=== PATIENT | male | born 1975 | race Caucasian/White ===

== ENCOUNTER 2017-06-18 18:25 | Inpatient (IN) | payer OTHER ==
[~2017-06-18] VITALS: Ht 180.3 cm; Wt 79.4 kg
--- NOTE | 2017-06-18 22:15 | NUR ---
Pre-Admission Pre-admission assessment performed in the intake department of [facility]. Pt is A&O and ambulatory with a steady gait. He appears fidgety but is cooperative and answers questions appropriately. Vital signs are B/P 124/71, HR 87, O2 sat 98%, RR 16, T 97.8, pain 0/10. Pt reports NKA and he denies seizure history. He states that he has been using methamphetamine IV and only occasionally drinks ETOH. Unit rules explained and pt verbalized understanding. Pt is stable and admission is to continue on the [facility].
[2017-06-18 22:20] VITALS: BP 124/71
[2017-06-18] MEDS ORDERED: ESCI20TA37 PO (23:05)
[2017-06-18] MEDS ORDERED: PRAZ1CAP5 PO (23:05)
[2017-06-18] MEDS ORDERED: ELVI1TAB3 PO (23:05)
[2017-06-18] MEDS ORDERED: HYDR-3028 PO (23:05)
[2017-06-18] MEDS ORDERED: IBUP100O18 PO (23:05)
[2017-06-18] MEDS ORDERED: MELA3TAB PO (23:05)
[2017-06-19] MEDS ORDERED: METHOCARBAMOL 750 MG TABLET PO PRN
[2017-06-19] MEDS ORDERED: CLONIDINE HCL 0.1 MG TABLET PO PRN
[2017-06-19] MEDS ORDERED: HYDROXYZINE PAMOATE 25 MG CAPSULE PO PRN
[2017-06-19] MEDS ORDERED: diphenhydrAMINE 50 MG CAPSULE PO PRN
[2017-06-19] MEDS ORDERED: IBUPROFEN 400 MG TABLET PO PRN
[2017-06-19] MEDS ORDERED: ACETAMINOPHEN 325 MG TABLET PO PRN
[2017-06-19] MEDS ORDERED: DICYCLOMINE HCL 20 MG TABLET PO PRN
[2017-06-19] MEDS ORDERED: ONDANSETRON 4 MG/2 ML VIAL IM PRN
[2017-06-19] MEDS ORDERED: ONDANSETRON ODT 4 MG TAB.RAPDIS SL PRN
[2017-06-19] MEDS ORDERED: MAGNESIUM HYDROXIDE 30 ML LIQUID UDC PO PRN
[2017-06-19] MEDS ORDERED: LORAZEPAM 1 MG TABLET PO PRN
[2017-06-19] MEDS ORDERED: MAG HYDROX/AL HYDROX/SIMETH 30 ML LIQUID UDC PO PRN
[2017-06-19] MEDS ORDERED: LOPERAMIDE HCL 2 MG CAPSULE PO PRN ×2
[2017-06-19] MEDS ORDERED: MIRALAX 17 GM POWD.PACK PO PRN
[2017-06-19] MEDS ORDERED: LORAZEPAM 1 MG TABLET PO ONE
[2017-06-19 00:15] VITALS: BP 116/82
--- NOTE | 2017-06-19 00:15 | NUR ---
ADMISSION Pt is a 41 yo male [facility] for medically supervised treatment for substance abuse. He is A&O and ambulatory with a steady gait. Body check performed by ENGINEER EXHAUSTER and skin check performed by the nurse. Pt was oriented to the unit and shown to his room. Admission vital signs are B/P 124/71, HR 87, O2 sat 98%, RR 16, T 97.8, pain 0/10. Pt is 5'11" and weighs 175lb. He reports NKA, wishes to be full code status, and is on a regular diet at home. He reports PMH of HIV, bilateral mild hearing loss since , anxiety, and depression. Pt wears corrective lenses. 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 He has bilateral AC track rosen from IV drug use. Last BM was today. Pt denies SI/HI. History of Use Methamphetamine IV 0.25 grams per day for the past 1 month. Last used 0.25 grams 06/16/17 at 1230. He has used meth off and on for four years. Treatment History [facility] for 30 days in 2014. Pt reports having 3 ounces of vodka once or twice per week. He does not smoke cigarettes. Pt decided to come to treatment today because, "I called out of work for month and didn't think about the consequences." Symptoms when he doesn't use include "anxiety, depression, not sleeping". He currently does not have much of a support system where he is living but does have a sponsor. 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 His longest period of sobriety was 60 days in 05/2016. 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 Dr. Fountain aware of pt's admission with orders received. Pt educated regarding use of the call light and all questions answered. Fall precautions in place. Bed is down with call light in reach.
[2017-06-19 01:24] LABS: *AMPHETAMINE, URINE POSITIVE (NEGATIVE); *BARBITURATE, URINE NEGATIVE (NEGATIVE); *CANNABINOID, URINE NEGATIVE (NEGATIVE); *COCCAINE, URINE NEGATIVE (NEGATIVE); *OPIATE, URINE NEGATIVE (NEGATIVE); *PHENCYCLIDINE SCREEN,URINE NEGATIVE (NEGATIVE)
[2017-06-19] MEDS ORDERED: AMOX-421 PO (01:24)
[2017-06-19 01:39] LABS: ETHANOL < 3 MG/DL (0-0)
[2017-06-19] MEDS: PATIENT MAY USE OWN MED- MD OK PO SCH ×2 (01:39→21:00)
--- NOTE | 2017-06-19 01:40 | NUR ---
One time Ativan On admission pt was anxious, nervous, fidgety, and unable to keep his legs from moving. One time Ativan administered per orders.
[2017-06-19 01:42] LABS: BASOPHILS # (AUTO) 0.1 K/uL (0.0-8.0); BASOPHILS % (AUTO) 1.8 % (0.0-2.0); EOSINOPHILS # (AUTO) 0.1 K/uL (0.0-0.7); EOSINOPHILS % (AUTO) 3.2 % (0.0-7.0); HEMATOCRIT 40.1 % (36.7-47.1); HEMOGLOBIN 13.8 g/dL (12.5-16.3); LYMPHOCYTES # (AUTO) 1.7 K/uL (20.0-40.0); LYMPHOCYTES % (AUTO) 37.8 % (20.5-51.5); MEAN CORPUSCULAR HEMOGLOBIN 32.8 uug (23.8-33.4); MEAN CORPUSCULAR HGB CONC 34 g/dL (32.5-36.3); MEAN CORPUSCULAR VOLUME 95.5 fL (73.0-96.2); MONOCYTES # (AUTO) 0.6 K/uL (2.0-10.0); MONOCYTES % (AUTO) 13.3 % (0.0-11.0); NEUTROPHILS % (AUTO) 43.9 % (38.5-71.5); PLATELET COUNT (AUTO) 257 K/uL (152-348); WHITE BLOOD COUNT (AUTO) 4.5 K/uL (3.6-10.2)
[2017-06-19 01:45] LABS: ALANINE AMINOTRANSFERASE 56 U/L (16-63); ALKALINE PHOSPHATASE 39 U/L (50-136); ASPARTATE AMINOTRANSFERASE 36 U/L (15-37); BILIRUBIN,TOTAL 0.3 mg/dL (0.2-1.0); CARBON DIOXIDE 33 mmol/L (21-32); CHLORIDE 107 mmol/L (98-107); CREATININE 1.1 mg/dL (0.6-1.3); GLUCOSE 87 mg/dL (74-106); MAGNESIUM 1.9 mg/dL (1.8-2.4); TOTAL PROTEIN, SERUM 6.5 g/dL (6.4-8.2); UREA NITROGEN, BLOOD 16 mg/dL (7-18)
[2017-06-19] MEDS ORDERED: LORAZEPAM 1 MG TABLET ONE (01:48)
--- NOTE | 2017-06-19 02:40 | NUR ---
One time Ativan reassessment One time Ativan effective. Pt is lying in bed resting with eyes closed. Respirations even and unlabored. Safety measures in place.
[2017-06-19] MEDS ORDERED: KETO5DRO72 OP (02:49)
[2017-06-19 04:00] VITALS: BP 108/63
--- NOTE | 2017-06-19 07:26 | NUR ---
END OF SHIFT Report provided to day shift nurse. Pt is lying in bed resting. He is a 41 yo male admitted to [facility] on 06/18 for methamphetamine dependence. He is A&O and ambulatory. NKA, full code, regular diet. PMH of HIV, bilateral mild hearing loss, anxiety, and depression. On admission pt reported using Meth IV 0.25grams per day. PRN's only ordered. Onetime Ativan administered per MD orders. He drank 1000mL and slept for 4 hours. Fall precautions in place. Bed is down with call light in reach.
--- NOTE | 2017-06-19 07:35 | NUR ---
START OF SHIFT Rcvd endorsement from ongoing nurse, client is in room, he is a/ox4, he presents with anxious mood, flat affect. He reports anxiety, irritability, fatigue, and no appetite. He denies any SI/HI. Encourage client to increase PO fluid intake to facilitate detox. Encourage client to attend group therapy for skills to maintain sober. Client is a 41 y/o male admitted to [facility] for withdrawal from methamphetamine. Client slept 4 hrs. Client reports NKA, Full code, and regular diet. Side rails x 2 up. Bed in lowest/locked position. Call light within reach.
[2017-06-19 08:55] VITALS: BP 107/60
[2017-06-19] MEDS ORDERED: TUBERCULIN,PURIF.PROT.DERIV. 5 TU/0.1 ML TEST ID ONE (09:00)
[2017-06-19 12:00] VITALS: BP 127/86
[2017-06-19] MEDS ORDERED: PATIENT MAY USE OWN MED- MD OK PO SCH ×3 (12:10→21:00)
[2017-06-19 16:55] VITALS: BP 125/79
--- NOTE | 2017-06-19 19:21 | NUR ---
END OF SHIFT Endorsed client to incoming nurse. Client is a 41 y/o male, he is a/o x 4, he presents with anxious mood, he was admitted to [facility] for withdrawal from methamphetamine. Client is schedule for discharge to [facility] tomorrow am, he verbalized understanding. Adequate PO fluid intake 1750mL, void x 2, stool x 1. Client reports NKA, Full code, and regular diet. Side rails x 2 up. Bed in lowest/locked position. Call light within reach.
[2017-06-19 20:00] VITALS: BP 131/87
--- NOTE | 2017-06-19 20:00 | NUR ---
Start of Shift Pt is a 41 year old male admitted for methamphetamine dependence, PRNs available for s/s of withdrawal. Pt reported using methamphetamine IV 0.25g/daily. PMH: HIV +, anxiety, depression and bilateral mild hearing loss since . NKA, regular diet, fall precautions and full code. Upon assessment, pt reports feeling anxious and restless, respirations even/unlabored, denies SOB/chest pain, denies n/v/d, skin mildly flushed, medications due. Safety measures in place, call light within reach, side rails up x2, bed locked and in low position. Will continue to monitor.
[2017-06-19] MEDS ORDERED: ESCITALOPRAM OXALATE 10 MG TABLET PO SCH (21:00)
[2017-06-19] MEDS ORDERED: ESCI10TA PO (21:58)
[2017-06-19] MEDS ORDERED: DIPH50CA37 PO (21:58)
[2017-06-19] MEDS ORDERED: HYDR-3895 PO (21:58)
[2017-06-20] VITALS: BP 115/83
[2017-06-20 02:08] LABS: *BASOS 0 % (Not Estab.); *EOS 3 % (Not Estab.); *EOS ABSOLUTE 0.1 x10E3/uL (0.0-0.4); *HCT 40.9 % (37.5-51.0); *HGB 13.3 g/dL (13.0-17.7); *IMMATURE GRANULOCYTES 0 % (Not Estab.); *LYMPHOCYTES 40 % (Not Estab.); *LYMPHOCYTES ABSOLUTE 1.8 x10E3/uL (0.7-3.1); *MCHC 32.5 g/dL (31.5-35.7); *MCV 95 fL (79-97); *MONOCYTES 12 % (Not Estab.); *MONOCYTES ABSOLUTE 0.5 x10E3/uL (0.1-0.9); *NEUTROPHILS 45 % (Not Estab.); *PLT 251 x10E3/uL (150-379); *RBC 4.29 x10E6/uL (4.14-5.80); *RDW 13.5 % (12.3-15.4); *WBC 4.5 x10E3/uL (3.4-10.8)
--- NOTE | 2017-06-20 07:00 | NUR ---
End of Shift Pt is a 41 year old male admitted for methamphetamine dependence, PRNs available for s/s of withdrawal. Pt reported using methamphetamine IV 0.25g/daily. PMH: HIV +, anxiety, depression and bilateral mild hearing loss since . NKA, regular diet, fall precautions and full code. During shift, pt reported feeling anxious and restless scheduled medications administered, effective in management of reported s/s. No PRN medications administered during shift. Pt is scheduled for discharge today. Pt slept for 7 hours, intake of 1100ml PO, voids x2 and stool x0. Safety measures in place, call light within reach, side rails up x2, bed locked and in low position. Endorsed to day shift nurse.
--- NOTE | 2017-06-20 07:49 | NUR ---
START OF SHIFT Received report from overnight houseperson nurse. 41 year old male patient admitted on 06/18/17 for methamphetamine dependence. Patient was not started on a taper and is medically cleared for discharge today. Does not present with acute s/s of withdrawals. Remains A/O x4, ambulates with a steady gait and V/S remain WNL throughout night. Pt reports being HIV + but did not bring home medications with him, prescription was faxed to d/c location. No PRNs needed or administered at night. Pt slept for 7 hours. Pt is in the showers at this time, denies pain or discomfort. All needs met at this time. Will continue to monitor.
[2017-06-20 08:07] VITALS: BP 119/80
--- NOTE | 2017-06-20 09:30 | NUR ---
D/C NOTES Pt is A/O x4. V/S remain WNL. Pt denies SI/HI or hallucinations. Pt shows no s/s of acute withdrawal at this time, and is stable. MD has medically cleared pt for d/c. Education on Hepatitis C, smoking cessation and medication side effects provided. Pt verbalizes understanding. All pt belongings are in belonging bag, including prescriptions,and home medications. Pt is being accompanied by SHAREPOINT ARCHITECT at this time to be transported to rehab. All needs met.
[2017-06-20 12:09] LABS: *HELPER T-LYMPH MARKR(CD4)ABSO 905 /uL (359-1519); *HELPER T-LYNPH MARKER CD4)% 50.3 % (30.8-58.5)
[2017-06-20 13:07] LABS: HEPATITIS B SURFACE AG Negative (Negative)
== END 2017-06-20 09:30 | disposition other institution (70) | DRG 895 ==
LOC: SRC 21:54
PROVIDERS: ADMIT Internal Medicine; ATTEND Internal Medicine
PROC: HZ2ZZZZ Detoxification Services for Substance Abuse Treatment (ICD-10-PCS; principal; 2017-06-18)
PROC: HZ31ZZZ Individual Counseling for Substance Abuse Treatment, Behavioral (ICD-10-PCS; 2017-06-19)
PROC: HZ41ZZZ Group Counseling for Substance Abuse Treatment, Behavioral (ICD-10-PCS; 2017-06-19)
DX: F15.23 Other stimulant dependence with withdrawal (principal); E87.3 Alkalosis; E86.0 Dehydration; F41.9 Anxiety disorder, unspecified; Z81.8 Family history of other mental and behavioral disorders; G47.00 Insomnia, unspecified; Z81.1 Family history of alcohol abuse and dependence; Z79.899 Other long term (current) drug therapy; Z91.89 Other specified personal risk factors, not elsewhere classified; F29 Unspecified psychosis not due to a substance or known physiological condition; Z20.5 Contact with and (suspected) exposure to viral hepatitis
CPT/HCPCS: 36415; 70030-TC; 80307; 80324; 83735; 85025; 86361; 86592; 86705; 86803; 87340; 87806; G0480